=== PATIENT | female | born 1995 | race African-American/Black ===

== ENCOUNTER 2018-02-15 20:47 | Emergency (ER) | payer BC ==
[~2018-02-15] VITALS: Ht 160 cm; Wt 86.4 kg
[2018-02-15 20:50] VITALS: TEMP 98.3
[2018-02-15 21:13] LABS: COLLECTION METHOD CLEAN CATCH
[2018-02-15 21:18] LABS: MUCOUS Present /lpf; PH 5 (5-8); SQUAMOUS EPITHELIAL 0-2 /hpf; URINE APPEARANCE Clear; URINE BACTERIA None Seen /hpf; URINE BILIRUBIN Negative (NEGATIVE); URINE BLOOD 2+ (NEGATIVE); URINE COLOR Yellow; URINE GLUCOSE Negative (NEGATIVE); URINE KETONE 2+ (NEGATIVE); URINE LEUKOCYTE ESTERASE Negative (NEGATIVE); URINE NITRATE Negative (NEGATIVE); URINE PROTEIN(semi-quant) Negative (NEGATIVE); URINE RBC 0-2 /hpf; URINE UROBILINOGEN Negative (NEGATIVE)
[2018-02-15 21:30] LABS: BASO % 0.4 % (0.0-2.0); EOS # 0.1 (0.0-0.7); EOS % 1.4 % (0-4.0); GRAN # 3.6 (1.4-6.5); GRAN % 63.6 % (42.2-75.2); HEMATOCRIT 37.3 % (35.0-45.0); HEMOGLOBIN 12.5 g/dl (12.0-15.0); LYMPH # 1.3 (1.2-3.4); LYMPH % 22.7 % (20.0-51.0); MEAN CELL VOLUME 89 fl (80.0-95.0); MEAN CORPUSCULAR HEMOGLOBIN 30 pg (26.0-32.0); MEAN CORPUSCULAR HGB CONC 34 g/dl (33.0-37.0); MEAN PLATELET VOLUME 8.5 fl (7.4-10.4); MONO # 0.7 (0.1-0.6); MONO % 11.5 % (1.7-9.3); PLATELET COUNT 225 K/mm3 (130-400); REDCELL DISTRIBUTION WIDTH-CV 12.3 % (11.5-14.5)
[2018-02-15 21:41] LABS: ALBUMIN 3.8 gm/dL (3.5-5.0); BILIRUBIN,TOTAL 0.3 mg/dL (0.0-1.0); C-REACTIVE PROTEIN 6.1 mg/dL (0.0-0.9); CALCIUM 8.8 mg/dL (8.4-10.2); CREATININE, serum 0.62 mg/dL (0.52-1.25); POTASSIUM 3.7 mmol/L (3.4-5.0); TOTAL PROTEIN 7.7 gm/dL (6.4-8.2)
[2018-02-15] MEDS ORDERED: ZOFRAN ODT4 MG PO (21:57)
[2018-02-15 22:41] VITALS: BP 124/62; PULSE 74
== END 2018-02-15 22:42 | disposition home or self-care (01) ==
LOC: COL.ER 20:47
PROVIDERS: Nurse Practitioner
DX: R19.7 Diarrhea, unspecified (principal); R11.10 Vomiting, unspecified
CPT/HCPCS: J2405; J7030

== ENCOUNTER 2018-06-30 09:01 | Emergency (ER) | payer BC ==
[~2018-06-30] VITALS: Ht 160 cm; Wt 91.4 kg
[~2018-06-30 09:01] MED LIST: ZOFRAN ODT4 MG PO
[2018-06-30 09:06] VITALS: BP 118/56; TEMP 98
[2018-06-30 09:55] VITALS: PULSE 58
[2018-06-30] MEDS ORDERED: PREDNISONE20 MG PO (18:16)
== END 2018-06-30 10:08 | disposition home or self-care (01) ==
LOC: COL.ER 09:01
DX: T78.1XXA Other adverse food reactions, not elsewhere classified, initial encounter (principal); Z98.890 Other specified postprocedural states
CPT/HCPCS: J7512

== ENCOUNTER 2018-10-29 10:10 | Emergency (ER) | payer SELFPAY ==
[~2018-10-29] VITALS: Ht 162.6 cm; Wt 90.9 kg
[~2018-10-29 10:10] MED LIST changes: +PREDNISONE20 MG PO
[2018-10-29 10:20] VITALS: TEMP 98.8
[2018-10-29 12:02] VITALS: BP 133/62; PULSE 80
== END 2018-10-29 12:03 | disposition home or self-care (01) ==
LOC: COL.ER 10:10
DX: J06.9 Acute upper respiratory infection, unspecified (principal); Z20.828 Contact with and (suspected) exposure to other viral communicable diseases

== ENCOUNTER 2020-05-15 21:45 | Emergency (ER) | payer SELFPAY ==
[~2020-05-15] VITALS: Ht 162.6 cm; Wt 88.6 kg
[2020-05-15 22:03] VITALS: BP 112/77; TEMP 97.9
[2020-05-15] MEDS ORDERED: VYVANSE10 MG PO (22:42)
[2020-05-15] MEDS ORDERED: FLEXERIL 1010 MG/TAB PO (22:50)
[2020-05-15 23:32] VITALS: PULSE 72
== END 2020-05-15 23:32 | disposition home or self-care (01) ==
LOC: COL.ER 21:45
DX: S13.4XXA Sprain of ligaments of cervical spine, initial encounter (principal); S33.5XXA Sprain of ligaments of lumbar spine, initial encounter; S83.92XA Sprain of unspecified site of left knee, initial encounter; R40.2410 Glasgow coma scale score 13-15, unspecified time; F90.9 Attention-deficit hyperactivity disorder, unspecified type; V43.62XA Car passenger injured in collision with other type car in traffic accident, initial encounter

== ENCOUNTER 2020-08-15 20:30 | Emergency (ER) | payer OTHER ==
[~2020-08-15] VITALS: Ht 162.6 cm; Wt 81.8 kg
[~2020-08-15 20:30] MED LIST changes: +FLEXERIL 1010 MG/TAB PO; +VYVANSE10 MG PO
[2020-08-15 20:37] VITALS: TEMP 97.8
[2020-08-15 21:20] LABS: BASO % 0.3 % (0.0-2.0); EOS # 0.1 (0.0-0.7); EOS % 1.8 % (0-4.0); GRAN # 3.5 (1.4-6.5); GRAN % 57.2 % (42.2-75.2); HEMOGLOBIN 11.1 g/dl (12.5-16.0); LYMPH # 2.1 (1.2-3.4); LYMPH % 33.5 % (20.0-51.0); MEAN CELL VOLUME 93 fl (80.0-100.0); MEAN CORPUSCULAR HEMOGLOBIN 30 pg (27.0-31.0); MEAN CORPUSCULAR HGB CONC 33 g/dl (33.0-37.0); MEAN PLATELET VOLUME 8.7 fl (7.4-10.4); MONO # 0.4 (0.1-0.6); PLATELET COUNT 247 K/mm3 (130-400); RED BLOOD COUNT 3.66 M/mm3 (4.10-5.30); REDCELL DISTRIBUTION WIDTH-CV 12.9 % (11.5-14.5)
[2020-08-15 21:21] LABS: HEMATOCRIT 34.1 % (37.0-47.0)
[2020-08-15 21:33] LABS: ALBUMIN 4.1 gm/dL (3.5-5.0); BILIRUBIN,TOTAL 0.5 mg/dL (0.0-1.0); C-REACTIVE PROTEIN 1.5 mg/dL (0.0-0.9); CALCIUM 9.2 mg/dL (8.4-10.2); CREATININE, serum 0.76 (0.52-1.25); POTASSIUM 4.2 mmol/L (3.4-5.0)
[2020-08-15 21:39] LABS: ERYTHROCYTE SEDIMENTATION RATE 11 mm/hr (0-20)
[2020-08-15] MEDS ORDERED: PERCOCET 325 MG1 TA2 PO (23:26)
[2020-08-15 23:50] VITALS: BP 114/63; PULSE 75
== END 2020-08-15 23:50 | disposition home or self-care (01) ==
LOC: COL.ER 20:30
PROVIDERS: Nurse Practitioner Family
DX: M25.462 Effusion, left knee (principal); R58 Hemorrhage, not elsewhere classified; Z32.02 Encounter for pregnancy test, result negative
CPT/HCPCS: J1885

== ENCOUNTER 2021-01-23 11:57 | Emergency (ER) | payer SELFPAY ==
[~2021-01-23] VITALS: Ht 162.6 cm; Wt 83.2 kg
[~2021-01-23 11:57] MED LIST changes: +PERCOCET 325 MG1 TA2 PO
[2021-01-23 12:06] VITALS: TEMP 98.1
[2021-01-23] MEDS ORDERED: NORCO 325 MG-51 TAB PO (13:17)
[2021-01-23] MEDS ORDERED: PEN-VEE K500 MG PO (13:17)
[2021-01-23 13:30] VITALS: BP 124/74; PULSE 71
== END 2021-01-23 13:30 | disposition home or self-care (01) ==
LOC: COL.ER 11:57
DX: K08.89 Other specified disorders of teeth and supporting structures (principal); Z98.818 Other dental procedure status